=== PATIENT | female | born 1965 | race Hispanic/Latino ===

== ENCOUNTER 2018-03-08 14:47 | Inpatient (IN) | payer OTHER ==
[2018-03-08] MEDS ORDERED: ZOFRAN IV ONE (15:25)
[2018-03-08] MEDS ORDERED: NACL 0.9% 1000 ML 1,000 ML IV ONE (15:25)
[2018-03-08 15:51] LABS: Basophils % (Auto) 0.2 % (0.0-1.8); Eosinophils % (Auto) 0.1 % (0.0-4.3); Hematocrit 35.5 % (30.3-42.9); Hemoglobin 11.9 gm/dl (10.1-14.3); Lymphocytes % (Auto) 7.9 % (13.4-35.0); Mean Corpuscular HGB Conc 34 % (30-34); Mean Corpuscular Hemoglobin 29 pg (28-32); Mean Corpuscular Volume 87 fl (79-97); Monocytes # (Auto) 1.4 K/mm3 (0.0-0.8); Platelet Count 229 K/mm3 (140-440); Red Cell Distribution Width 14.1 % (13.2-15.2)
[2018-03-08] MEDS ORDERED: ZOSYN/NS 4.5GM/100ML 4.5 GM/100 ML VIAL IV SCH ×2 (16:00→18:40)
[2018-03-08 16:08] LABS: Alanine Aminotransferase 75 units/L (7-56); Albumin 3.7 g/dL (3.9-5); BUN/Creatinine Ratio 22; Blood Urea Nitrogen 11 mg/dL (7-17); Calcium 8.8 mg/dL (8.4-10.2); Hemolysis Index 43
[2018-03-08 16:17] LABS: Bacteria,Urine 1+ /HPF (Negative); Bilirubin,Urine NEG (Negative); Blood,Urine MOD (Negative); Color,Urine Amber (Yellow); Mucus,Urine 3+ /HPF
--- NOTE | 2018-03-08 16:47 | Emergency Department Report ---
ED Abdominal Pain HPI - General Chief Complaint: Abdominal Pain Stated Complaint: SENT ME HERE FOR POSSIBLE APPY Time Seen by Provider: 03/08/18 15:19 Source: patient Mode of arrival: Ambulatory Limitations: No Limitations - History of Present Illness Initial Comments: 52-year-old female no past medical or surgical history presents to the hospital by her doctor for suspicion of appendicitis. For the past 5 days patient has had intermittent fever, body aches, and generalized abdominal pain worse in the right lower quadrant. Decreased appetite reported with occasional vomiting. Patient denies dysuria, diarrhea, international travel, or known sick contacts. Patient did recently return from [place] 4 days ago. Her primary care doctor contacted general surgeon Dr. Mott who will be performing her surgery if imaging test positive for appendicitis. Severity scale (0 -10): 7 - Related Data Allergies Allergy/AdvReac Type Severity Reaction Status Date / Time No Known Allergies Allergy Verified 03/08/18 17:21 ED Review of Systems ROS: Stated complaint: SENT ME HERE FOR POSSIBLE APPY Other details as noted in HPI Comment: All other systems reviewed and negative ED Past Medical Hx - Past Medical History Previous Medical History?: No - Surgical History Past Surgical History?: No - Social History Smoking Status: Never Smoker Substance Use Type: None ED Physical Exam - General Limitations: No Limitations - Other Other exam information: General: No limitations, patient is alert in no acute distress Head exam: Atraumatic, normocephalic Eyes exam: Normal appearance ENT: Moist mucous membrane, normal oropharynx Neck exam: Normal inspection, full range of motion, no meningismus nontender Respiratory exam: Clear to auscultation bilateral, no wheezes, rales, crackles Cardiovascular: Normal rate and rhythm, normal heart sounds Abdomen: Soft, nondistended, right lower quadrant tenderness, with normal bowel sounds, no rebound, or guarding Extremity: Full range of motion normal inspection no deformity Back: Normal Inspection, full range of motion, no tenderness Neurologic: Alert, oriented x3, cranial nerves intact, no motor or sensory deficit Psychiatric: normal affect, normal mood Skin: Warm, dry, intact ED Course Vital Signs 03/08/18 03/08/18 14:57 15:33 Temperature 100.9 F H 100.6 F H Pulse Rate 70 84 Respiratory 16 14 Rate Blood Pressure 124/66 Blood Pressure 119/73 [Left] O2 Sat by Pulse 97 98 Oximetry - Reevaluation(s) Reevaluation #1: 03/08/18 16:47 Zofran, normal saline, and Zosyn initiated. Patient declined offer for pain medication. ED Medical Decision Making - Lab Data Result diagrams: 03/08/18 15:20 03/08/18 15:20 Lab Results 03/08/18 03/08/18 03/08/18 Range/Units 15:20 15:20 15:20 WBC 12.6 H (4.5-11.0) K/mm3 RBC 4.10 (3.65-5.03) M/mm3 Hgb 11.9 (10.1-14.3) gm/dl Hct 35.5 (30.3-42.9) % MCV 87 (79-97) fl MCH 29 (28-32) pg MCHC 34 (30-34) % RDW 14.1 (13.2-15.2) % Plt Count 229 (140-440) K/mm3 Lymph % (Auto) 7.9 L (13.4-35.0) % [place] % (Auto) 11.0 H (0.0-7.3) % Eos % (Auto) 0.1 (0.0-4.3) % Baso % (Auto) 0.2 (0.0-1.8) % Lymph # 1.0 L (1.2-5.4) K/mm3 [place] # 1.4 H (0.0-0.8) K/mm3 Eos # 0.0 (0.0-0.4) K/mm3 Baso # 0.0 (0.0-0.1) K/mm3 Seg Neutrophils % 80.8 H (40.0-70.0) % Seg Neutrophils # 10.2 H (1.8-7.7) K/mm3 Sodium 137 (137-145) mmol/L Potassium 4.3 (3.6-5.0) mmol/L Chloride 97.1 L (98-107) mmol/L Carbon Dioxide 25 (22-30) mmol/L Anion Gap 19 mmol/L BUN 11 (7-17) mg/dL Creatinine 0.5 L (0.7-1.2) mg/dL Estimated GFR > 60 ml/min BUN/Creatinine Ratio 22 % Glucose 104 H (65-100) mg/dL Calcium 8.8 (8.4-10.2) mg/dL Total Bilirubin 0.80 (0.1-1.2) mg/dL AST 40 (5-40) units/L ALT 75 H (7-56) units/L Alkaline Phosphatase 131 H (35-129) units/L Total Protein 7.5 (6.3-8.2) g/dL Albumin 3.7 L (3.9-5) g/dL Albumin/Globulin Ratio 1.0 % Urine Color (Yellow) Urine Turbidity (Clear) Urine pH (5.0-7.0) Ur Specific [place] (1.003-1.030) Urine Protein (Negative) mg/dL Urine Glucose (UA) (Negative) mg/dL Urine Ketones (Negative) mg/dL Urine Blood (Negative) Urine Nitrite (Negative) Urine Bilirubin (Negative) Urine Urobilinogen (<2.0) mg/dL Ur Leukocyte Esterase (Negative) Urine WBC (Auto) (0.0-6.0) /HPF Urine RBC (Auto) (0.0-6.0) /HPF U Epithel Cells (Auto) (0-13.0) /HPF Urine Bacteria (Auto) (Negative) /HPF Urine Mucus /HPF Blood Type A POSITIVE Antibody Screen Negative 03/08/18 Range/Units 15:57 WBC (4.5-11.0) K/mm3 RBC (3.65-5.03) M/mm3 Hgb (10.1-14.3) gm/dl Hct (30.3-42.9) % MCV (79-97) fl MCH (28-32) pg MCHC (30-34) % RDW (13.2-15.2) % Plt Count (140-440) K/mm3 Lymph % (Auto) (13.4-35.0) % [place] % (Auto) (0.0-7.3) % Eos % (Auto) (0.0-4.3) % Baso % (Auto) (0.0-1.8) % Lymph # (1.2-5.4) K/mm3 [place] # (0.0-0.8) K/mm3 Eos # (0.0-0.4) K/mm3 Baso # (0.0-0.1) K/mm3 Seg Neutrophils % (40.0-70.0) % Seg Neutrophils # (1.8-7.7) K/mm3 Sodium (137-145) mmol/L Potassium (3.6-5.0) mmol/L Chloride (98-107) mmol/L Carbon Dioxide (22-30) mmol/L Anion Gap mmol/L BUN (7-17) mg/dL Creatinine (0.7-1.2) mg/dL Estimated GFR ml/min BUN/Creatinine Ratio % Glucose (65-100) mg/dL Calcium (8.4-10.2) mg/dL Total Bilirubin (0.1-1.2) mg/dL AST (5-40) units/L ALT (7-56) units/L Alkaline Phosphatase (35-129) units/L Total Protein (6.3-8.2) g/dL Albumin (3.9-5) g/dL Albumin/Globulin Ratio % Urine Color [place] (Yellow) Urine Turbidity Clear (Clear) Urine pH 5.0 (5.0-7.0) Ur Specific [place] 1.025 (1.003-1.030) Urine Protein 100 mg/dl (Negative) mg/dL Urine Glucose (UA) Neg (Negative) mg/dL Urine Ketones Neg (Negative) mg/dL Urine Blood Mod (Negative) Urine Nitrite Neg (Negative) Urine Bilirubin Neg (Negative) Urine Urobilinogen 4.0 (<2.0) mg/dL Ur Leukocyte Esterase Neg (Negative) Urine WBC (Auto) 5.0 (0.0-6.0) /HPF Urine RBC (Auto) 11.0 (0.0-6.0) /HPF U Epithel Cells (Auto) 2.0 (0-13.0) /HPF Urine Bacteria (Auto) 1+ (Negative) /HPF Urine Mucus 3+ /HPF Blood Type Antibody Screen - Radiology Data Radiology results: report reviewed PROCEDURE: CT abdomen and pelvis with contrast. TECHNIQUE: Computerized axial tomography of the abdomen and pelvis was performed after the IV injection of iodinated nonionic contrast. HISTORY: Right lower quadrant abdominal pain, nausea and vomiting. COMPARISON: No prior studies are available for comparison. FINDINGS: The lung bases are clear. There are no pleural effusions. The heart size is normal. The liver, pancreas and spleen appear normal. The gallbladder is present. The adrenal glands are not enlarged. Both kidneys appear normal in size and configuration. There is a tiny cyst in the right kidney. The abdominal aorta has a normal caliber. There is no retroperitoneal adenopathy. There is a complex fluid collection in the right side of the pelvis. This is located posterior to the cecum. There is a bubble of gas within this fluid. I cannot identify the appendix with certainty. I am suspicious that this represents ruptured appendicitis with abscess formation however. Pelvic inflammatory disease with a right ovarian abscess is also possible, but considered less likely. Clinical correlation and referral to a general surgeon is recommended. The fluid collection measures approximately 4.1 centimeters x 3.3 centimeters in cross-section. The bladder and uterus are unremarkable. The regional skeleton appears intact. IMPRESSION: Right-sided pelvic abscess which probably represents ruptured appendicitis. Please see above comments. Tiny right renal cyst. - Medical Decision Making acute appy with abscess Patient treated with Zosyn, Zofran, and normal saline General surgeon Dr. Mott at the bedside. Will admit pt - Differential Diagnosis appendicitis, UTI, diverticulitis, gastroenteritis Critical Care Time: No Critical care attestation.: If time is entered above; I have spent that time in minutes in the direct care of this critically ill patient, excluding procedure time. ED Disposition Clinical Impression: Acute appendicitis with peritoneal abscess Disposition: OP ADMIT IP TO THIS HOSP Is pt being admited?: Yes Condition: Stable Time of Disposition: 18:05 (Dr mott to admit )
[2018-03-08] MEDS ORDERED: SUBLIMAZE ONE (17:48)
[2018-03-08] MEDS ORDERED: ZOFRAN ONE (17:48)
[2018-03-08] MEDS ORDERED: DIPRIVAN 10 MG/ML IV ONE (17:48)
[2018-03-08] MEDS ORDERED: ZEMURON IV ONE (17:48)
--- NOTE | 2018-03-08 17:51 | Anesthesia Consultation ---
Anesthesia Consult and Med Hx Date of service: 03/08/18 - Airway Anesthetic Teeth Evaluation: Good (#8-9 are implants), Crowns ROM Head & Neck: Adequate Mental/Hyoid Distance: Adequate Mallampati Class: Class II Intubation Access Assessment: Probably Good - Pre-Operative Health Status ASA Pre-Surgery Classification: ASA1, Emergency - Additional Comments Anesthesia Medical History Comments: acute appendicitis
--- NOTE | 2018-03-08 17:51 | Anesthesia Day of Surgery ---
Anesthesia Day of Surgery - Day of Surgery Patient Examined: Yes Patient H&P Reviewed: Yes Patient is NPO: Yes
--- NOTE | 2018-03-08 17:54 | Cat Scan Report ---
FINAL REPORT PROCEDURE: CT abdomen and pelvis with contrast. TECHNIQUE: Computerized axial tomography of the abdomen and pelvis was performed after the IV injection of iodinated nonionic contrast. HISTORY: Right lower quadrant abdominal pain, nausea and vomiting. COMPARISON: No prior studies are available for comparison. FINDINGS: The lung bases are clear. There are no pleural effusions. The heart size is normal. The liver, pancreas and spleen appear normal. The gallbladder is present. The adrenal glands are not enlarged. Both kidneys appear normal in size and configuration. There is a tiny cyst in the right kidney. The abdominal aorta has a normal caliber. There is no retroperitoneal adenopathy. There is a complex fluid collection in the right side of the pelvis. This is located posterior to the cecum. There is a bubble of gas within this fluid. I cannot identify the appendix with certainty. I am suspicious that this represents ruptured appendicitis with abscess formation however. Pelvic inflammatory disease with a right ovarian abscess is also possible, but considered less likely. Clinical correlation and referral to a general surgeon is recommended. The fluid collection measures approximately 4.1 centimeters x 3.3 centimeters in cross-section. The bladder and uterus are unremarkable. The regional skeleton appears intact. IMPRESSION: Right-sided pelvic abscess which probably represents ruptured appendicitis. Please see above comments. Tiny right renal cyst.
[2018-03-08] MEDS ORDERED: XYLOCAINE MPF 2% ONE (18:00)
[2018-03-08] MEDS ORDERED: WATER IV SCH (18:45)
[2018-03-08] MEDS ORDERED: STERILE IV SCH (18:45)
[2018-03-08] MEDS ORDERED: ZOSYN NICU IV SCH (18:45)
--- NOTE | 2018-03-08 18:52 | History and Physical Report ---
History of Present Illness Date of examination: 03/08/18 Date of admission: 03/08/18 18:22 Chief complaint: RLQ pain X 5 days History of present illness: 52 yo female with a 5 day h/o diffuse then BLQ abd pain associated with nausea, vomiting and "very dark" bowel movements. She has had a LGF but denies dysuria , hematuria, urinary frequency, hematemesis, melena, hematochezia or contacts with similar symptoms. No prior abd surgery except for a D&C. She is not aware of any precipitating, exacerbating or relieving factors. Past History Past Surgical History: Other (D&C, sinus surgery) Social history: no significant social history, (Denies Etoh and tobacco use.) Family history: no significant family history Medications and Allergies Allergies Allergy/AdvReac Type Severity Reaction Status Date / Time No Known Allergies Allergy Verified 03/08/18 17:21 Home Medications Medication Instructions Recorded Confirmed Last Taken Type No Known Home Medications [No 03/08/18 03/08/18 Unknown History Reported Home Medications] Active Meds: Active Medications Heparin Sodium (Porcine) (Heparin) 5,000 unit SUB-Q Q8HR [place]ON Piperacillin Sod/Tazobactam Sod (Zosyn/Ns 4.5gm/100ml) 4.5 gm in 100 mls @ 200 mls/hr IV ONCE [facility]ON Metronidazole (Flagyl 500 Mg/100 Ml) 500 mg in 100 mls @ 100 mls/hr IV Q8HR [facility]ON Piperacillin Sod/Tazobactam Sod (Zosyn/Ns 4.5gm/100ml) 4.5 gm in 100 mls @ 200 mls/hr IV Q8H [place]ON Morphine Sulfate (Morphine) 2 mg IV Q3H PRN PRN Reason: Pain, Moderate (4-6) Review of Systems All systems: negative (none) Exam Vital Signs Temp Pulse Resp BP Pulse Ox 100.9 F H 70 16 124/66 97 03/08/18 14:57 03/08/18 14:57 03/08/18 14:57 03/08/18 14:57 03/08/18 14:57 - General physical appearance Positive: well developed, well nourished, no distress - Eyes Positive: PERRL, normal occular movement - ENT Positive: normal pinna, normal nares, normal mucosa, no hearing loss, no congestion - Neck Positive: no masses, no bruits, trachea midline, no venous distension - Respiratory Positive: normal expansion, normal respiratory effort, clear to auscultation - Cardiovascular Rhythm: regular Heart Sounds: Present: S1 & S2. Absent: rub, click - Extremities Extremities: no ischemia, pulses symmetrical, No edema - Breasts Breasts: deferred - Abdomen Abdomen: Present: other (Soft with pinpoint RLQ tenderness with guarding. Bowel sounds normoactive. No rebound. No cough tenderness) - Genitourinary Female Genitourinary: deferred - Integumentary no rash, no growths, no abnormal pigmentation - Neurologic Neurologic: alert and oriented to time, place and person, motor strength and sensation are grossly intact - Musculoskeletal normal gait, normal posture - Psychiatric Psychiatric: appropriate mood/affect, intact judgment & insight Results - Labs 03/08/18 15:20 03/08/18 15:20 Abnormal lab results 03/08/18 03/08/18 Range/Units 15:20 15:20 WBC 12.6 H (4.5-11.0) K/mm3 Lymph % (Auto) 7.9 L (13.4-35.0) % [place] % (Auto) 11.0 H (0.0-7.3) % Lymph # 1.0 L (1.2-5.4) K/mm3 [place] # 1.4 H (0.0-0.8) K/mm3 Seg Neutrophils % 80.8 H (40.0-70.0) % Seg Neutrophils # 10.2 H (1.8-7.7) K/mm3 Chloride 97.1 L (98-107) mmol/L Creatinine 0.5 L (0.7-1.2) mg/dL Glucose 104 H (65-100) mg/dL ALT 75 H (7-56) units/L Alkaline Phosphatase 131 H (35-129) units/L Albumin 3.7 L (3.9-5) g/dL Diabetes panel 03/08/18 Range/Units 15:20 Sodium 137 (137-145) mmol/L Potassium 4.3 (3.6-5.0) mmol/L Chloride 97.1 L (98-107) mmol/L Carbon Dioxide 25 (22-30) mmol/L BUN 11 (7-17) mg/dL Creatinine 0.5 L (0.7-1.2) mg/dL Glucose 104 H (65-100) mg/dL Calcium 8.8 (8.4-10.2) mg/dL AST 40 (5-40) units/L ALT 75 H (7-56) units/L Alkaline Phosphatase 131 H (35-129) units/L Total Protein 7.5 (6.3-8.2) g/dL Albumin 3.7 L (3.9-5) g/dL Calcium panel 03/08/18 Range/Units 15:20 Calcium 8.8 (8.4-10.2) mg/dL Albumin 3.7 L (3.9-5) g/dL Pituitary panel 03/08/18 Range/Units 15:20 Sodium 137 (137-145) mmol/L Potassium 4.3 (3.6-5.0) mmol/L Chloride 97.1 L (98-107) mmol/L Carbon Dioxide 25 (22-30) mmol/L BUN 11 (7-17) mg/dL Creatinine 0.5 L (0.7-1.2) mg/dL Glucose 104 H (65-100) mg/dL Calcium 8.8 (8.4-10.2) mg/dL Adrenal panel 03/08/18 Range/Units 15:20 Sodium 137 (137-145) mmol/L Potassium 4.3 (3.6-5.0) mmol/L Chloride 97.1 L (98-107) mmol/L Carbon Dioxide 25 (22-30) mmol/L BUN 11 (7-17) mg/dL Creatinine 0.5 L (0.7-1.2) mg/dL Glucose 104 H (65-100) mg/dL Calcium 8.8 (8.4-10.2) mg/dL Total Bilirubin 0.80 (0.1-1.2) mg/dL AST 40 (5-40) units/L ALT 75 H (7-56) units/L Alkaline Phosphatase 131 H (35-129) units/L Total Protein 7.5 (6.3-8.2) g/dL Albumin 3.7 L (3.9-5) g/dL - Imaging CT scan - abdomen: report reviewed CT scan - pelvis: report reviewed Assessment and Plan - Patient Problems (1) Acute appendicitis with peritoneal abscess Current Visit: Yes Status: Acute Plan to address problem: 1) IV Zosyn and Flagyl 2) NPO 3) IR consult in the am for percutaneous drainage 4) Prophylactic IPC and SQ Heparin
[2018-03-08] MEDS: TYLENOL PO PRN (20:39)
[2018-03-08] MEDS: NACL 0.9% 1000 ML 1,000 ML IV SCH (20:39)
[2018-03-08] MEDS: FLAGYL 500 MG/100 ML 500 MG/100 ML BAG IV SCH (23:16)
[2018-03-08] MEDS: ZOSYN/NS 4.5GM/100ML 4.5 GM/100 ML VIAL IV SCH (23:16)
[2018-03-08] MEDS: HEPARIN SUB-Q SCH (23:19)
[2018-03-09 05:45] LABS: Basophils # (Auto) 0.1 K/mm3 (0.0-0.1); Basophils % (Auto) 0.5 % (0.0-1.8); Hematocrit 30.5 % (30.3-42.9); Hemoglobin 10.3 gm/dl (10.1-14.3); Lymphocytes # (Auto) 1.2 K/mm3 (1.2-5.4); Lymphocytes % (Auto) 9.4 % (13.4-35.0); Mean Corpuscular HGB Conc 34 % (30-34); Mean Corpuscular Hemoglobin 29 pg (28-32); Mean Corpuscular Volume 87 fl (79-97); Monocytes # (Auto) 1.2 K/mm3 (0.0-0.8); Monocytes % (Auto) 8.8 % (0.0-7.3); Red Cell Distribution Width 14.2 % (13.2-15.2)
[2018-03-09 05:51] LABS: Platelet Count 190 K/mm3 (140-440)
[2018-03-09 06:03] LABS: BUN/Creatinine Ratio 22; Blood Urea Nitrogen 11 mg/dL (7-17); Hemolysis Index 145
[2018-03-09] MEDS: TYLENOL PO PRN ×2 (07:47→20:04)
[2018-03-09] MEDS: FLAGYL 500 MG/100 ML 500 MG/100 ML BAG IV SCH ×3 (07:50→22:00)
[2018-03-09] MEDS: HEPARIN SUB-Q SCH ×3 (07:52→22:03)
[2018-03-09] MEDS: NACL 0.9% 1000 ML 1,000 ML IV SCH ×2 (07:56→09:42)
[2018-03-09] MEDS: ZOSYN/NS 4.5GM/100ML 4.5 GM/100 ML VIAL IV SCH ×2 (08:30→16:46)
[2018-03-09] MEDS ORDERED: VERSED IV ONE ×2 (09:11→09:16)
[2018-03-09] MEDS ORDERED: SUBLIMAZE IV ONE (09:11)
[2018-03-09] MEDS ORDERED: SUBLIMAZE ONE (09:16)
[2018-03-09] MEDS ORDERED: NACL 0.9% 500 ML 0 ML ONE (09:16)
[2018-03-09] MEDS ORDERED: NACL 0.9% 1000 ML 1,000 ML ONE ×3 (09:34→11:20)
[2018-03-09] MEDS ORDERED: NACL 0.9% 1000 ML 1,000 ML IV ONE ×2 (10:00→10:34)
--- NOTE | 2018-03-09 11:22 | Post Operative Note ---
Date of procedure: 03/09/18 Pre-op diagnosis: Appendiceal multiloculated abscess Post-op diagnosis: same Procedure: CT guided placement of an 8 Fr drain in the RLQ appendiceal abscess - 25 mL pus and bloody discharge removed. Attached to drainage bag. Sent for Cx. Anesthesia: local Surgeon: KAMERON CHEN Estimated blood loss: minimal Specimen disposition: to lab Condition: stable Disposition: floor
--- NOTE | 2018-03-09 12:14 | Progress Note ---
Assessment and Plan - Patient Problems (1) Acute appendicitis with peritoneal abscess Current Visit: Yes Status: Acute Plan to address problem: 1) Continue IV Zosyn and Flagyl 2) CLD 3) CBC in the am Subjective Date of service: 03/09/18 Patient Reports: Positive: no new complaints (S/p IR drainage.) Objective Vital Signs - 12hr 03/09/18 03/09/18 03/09/18 00:40 00:41 04:38 Temperature 99.7 F H 102.0 F H Pulse Rate 75 75 80 Pulse Rate [ Intra-Procedure ] Pulse Rate [ Post-Procedure] Pulse Rate [Pre -Procedure] Respiratory 20 20 Rate Respiratory Rate [Intra- Procedure] Respiratory Rate [Post- Procedure] Respiratory Rate [Pre- Procedure] Blood Pressure 98/44 98/44 98/52 Blood Pressure [Intra- Procedure] Blood Pressure [Left] Blood Pressure [Post-Procedure ] Blood Pressure [Pre-Procedure] O2 Sat by Pulse 99 98 93 Oximetry O2 Sat by Pulse Oximetry [ Intra-Procedure ] O2 Sat by Pulse Oximetry [Post -Procedure] O2 Sat by Pulse Oximetry [Pre- Procedure] 03/09/18 03/09/18 03/09/18 08:06 08:07 09:40 Temperature 99.9 F H Pulse Rate 78 79 Pulse Rate [ Intra-Procedure ] Pulse Rate [ Post-Procedure] Pulse Rate [Pre 71 -Procedure] Respiratory 18 Rate Respiratory Rate [Intra- Procedure] Respiratory Rate [Post- Procedure] Respiratory 22 Rate [Pre- Procedure] Blood Pressure 108/53 Blood Pressure [Intra- Procedure] Blood Pressure [Left] Blood Pressure [Post-Procedure ] Blood Pressure 100/52 [Pre-Procedure] O2 Sat by Pulse 91 92 Oximetry O2 Sat by Pulse Oximetry [ Intra-Procedure ] O2 Sat by Pulse Oximetry [Post -Procedure] O2 Sat by Pulse 95 Oximetry [Pre- Procedure] 03/09/18 03/09/18 03/09/18 10:15 10:41 10:43 Temperature Pulse Rate 69 Pulse Rate [ 73 Intra-Procedure ] Pulse Rate [ Post-Procedure] Pulse Rate [Pre 74 -Procedure] Respiratory 23 Rate Respiratory 18 Rate [Intra- Procedure] Respiratory Rate [Post- Procedure] Respiratory 20 Rate [Pre- Procedure] Blood Pressure Blood Pressure 107/57 [Intra- Procedure] Blood Pressure 98/59 [Left] Blood Pressure [Post-Procedure ] Blood Pressure 100/58 [Pre-Procedure] O2 Sat by Pulse 95 Oximetry O2 Sat by Pulse 99 Oximetry [ Intra-Procedure ] O2 Sat by Pulse Oximetry [Post -Procedure] O2 Sat by Pulse 98 Oximetry [Pre- Procedure] 03/09/18 03/09/18 03/09/18 10:48 10:53 10:56 Temperature Pulse Rate Pulse Rate [ 72 71 Intra-Procedure ] Pulse Rate [ Post-Procedure] Pulse Rate [Pre -Procedure] Respiratory 18 Rate Respiratory 26 H 27 H Rate [Intra- Procedure] Respiratory Rate [Post- Procedure] Respiratory Rate [Pre- Procedure] Blood Pressure Blood Pressure 100/58 104/57 [Intra- Procedure] Blood Pressure [Left] Blood Pressure [Post-Procedure ] Blood Pressure [Pre-Procedure] O2 Sat by Pulse Oximetry O2 Sat by Pulse 98 99 Oximetry [ Intra-Procedure ] O2 Sat by Pulse Oximetry [Post -Procedure] O2 Sat by Pulse Oximetry [Pre- Procedure] 03/09/18 03/09/18 03/09/18 10:58 11:03 11:07 Temperature Pulse Rate Pulse Rate [ 69 70 70 Intra-Procedure ] Pulse Rate [ Post-Procedure] Pulse Rate [Pre -Procedure] Respiratory Rate Respiratory 23 22 27 H Rate [Intra- Procedure] Respiratory Rate [Post- Procedure] Respiratory Rate [Pre- Procedure] Blood Pressure Blood Pressure 105/57 105/60 104/70 [Intra- Procedure] Blood Pressure [Left] Blood Pressure [Post-Procedure ] Blood Pressure [Pre-Procedure] O2 Sat by Pulse Oximetry O2 Sat by Pulse 100 99 100 Oximetry [ Intra-Procedure ] O2 Sat by Pulse Oximetry [Post -Procedure] O2 Sat by Pulse Oximetry [Pre- Procedure] 03/09/18 03/09/18 03/09/18 11:12 11:19 11:34 Temperature Pulse Rate Pulse Rate [ 70 Intra-Procedure ] Pulse Rate [ 70 69 Post-Procedure] Pulse Rate [Pre -Procedure] Respiratory Rate Respiratory 14 Rate [Intra- Procedure] Respiratory 22 23 Rate [Post- Procedure] Respiratory Rate [Pre- Procedure] Blood Pressure Blood Pressure 101/58 [Intra- Procedure] Blood Pressure [Left] Blood Pressure 104/59 109/57 [Post-Procedure ] Blood Pressure [Pre-Procedure] O2 Sat by Pulse Oximetry O2 Sat by Pulse 100 Oximetry [ Intra-Procedure ] O2 Sat by Pulse 99 95 Oximetry [Post -Procedure] O2 Sat by Pulse Oximetry [Pre- Procedure] 03/09/18 11:51 Temperature Pulse Rate Pulse Rate [ Intra-Procedure ] Pulse Rate [ 69 Post-Procedure] Pulse Rate [Pre -Procedure] Respiratory Rate Respiratory Rate [Intra- Procedure] Respiratory 22 Rate [Post- Procedure] Respiratory Rate [Pre- Procedure] Blood Pressure Blood Pressure [Intra- Procedure] Blood Pressure [Left] Blood Pressure 102/57 [Post-Procedure ] Blood Pressure [Pre-Procedure] O2 Sat by Pulse Oximetry O2 Sat by Pulse Oximetry [ Intra-Procedure ] O2 Sat by Pulse 96 Oximetry [Post -Procedure] O2 Sat by Pulse Oximetry [Pre- Procedure] - Abdomen other (Soft with unchanged RLQ tenderness) - Labs 03/09/18 04:57 03/09/18 04:57 Diabetes panel 03/08/18 03/09/18 Range/Units 15:20 04:57 Sodium 137 137 (137-145) mmol/L Potassium 4.3 4.1 (3.6-5.0) mmol/L Chloride 97.1 L 96.9 L (98-107) mmol/L Carbon Dioxide 25 21 L (22-30) mmol/L BUN 11 11 (7-17) mg/dL Creatinine 0.5 L 0.5 L (0.7-1.2) mg/dL Glucose 104 H 93 (65-100) mg/dL Calcium 8.8 8.0 L (8.4-10.2) mg/dL AST 40 (5-40) units/L ALT 75 H (7-56) units/L Alkaline Phosphatase 131 H (35-129) units/L Total Protein 7.5 (6.3-8.2) g/dL Albumin 3.7 L (3.9-5) g/dL Calcium panel 03/08/18 03/09/18 Range/Units 15:20 04:57 Calcium 8.8 8.0 L (8.4-10.2) mg/dL Albumin 3.7 L (3.9-5) g/dL Pituitary panel 03/08/18 03/09/18 Range/Units 15:20 04:57 Sodium 137 137 (137-145) mmol/L Potassium 4.3 4.1 (3.6-5.0) mmol/L Chloride 97.1 L 96.9 L (98-107) mmol/L Carbon Dioxide 25 21 L (22-30) mmol/L BUN 11 11 (7-17) mg/dL Creatinine 0.5 L 0.5 L (0.7-1.2) mg/dL Glucose 104 H 93 (65-100) mg/dL Calcium 8.8 8.0 L (8.4-10.2) mg/dL Adrenal panel 03/08/18 03/09/18 Range/Units 15:20 04:57 Sodium 137 137 (137-145) mmol/L Potassium 4.3 4.1 (3.6-5.0) mmol/L Chloride 97.1 L 96.9 L (98-107) mmol/L Carbon Dioxide 25 21 L (22-30) mmol/L BUN 11 11 (7-17) mg/dL Creatinine 0.5 L 0.5 L (0.7-1.2) mg/dL Glucose 104 H 93 (65-100) mg/dL Calcium 8.8 8.0 L (8.4-10.2) mg/dL Total Bilirubin 0.80 (0.1-1.2) mg/dL AST 40 (5-40) units/L ALT 75 H (7-56) units/L Alkaline Phosphatase 131 H (35-129) units/L Total Protein 7.5 (6.3-8.2) g/dL Albumin 3.7 L (3.9-5) g/dL
[2018-03-09] MEDS: MORPHINE IV PRN ×3 (13:42→19:55)
[2018-03-10] MEDS: ZOSYN/NS 4.5GM/100ML 4.5 GM/100 ML VIAL IV SCH ×4 (00:10→23:47)
[2018-03-10] MEDS: MORPHINE IV PRN ×4 (00:12→22:09)
[2018-03-10] MEDS: NACL 0.9% 1000 ML 1,000 ML IV SCH ×2 (00:14→23:47)
[2018-03-10 04:57] LABS: Basophils % (Auto) 0.4 % (0.0-1.8); Hematocrit 27.1 % (30.3-42.9); Hemoglobin 9.3 gm/dl (10.1-14.3); Lymphocytes % (Auto) 10.1 % (13.4-35.0); Mean Corpuscular HGB Conc 34 % (30-34); Mean Corpuscular Hemoglobin 30 pg (28-32); Mean Corpuscular Volume 87 fl (79-97); Monocytes # (Auto) 0.5 K/mm3 (0.0-0.8); Monocytes % (Auto) 5.1 % (0.0-7.3); Platelet Count 188 K/mm3 (140-440); Red Blood Count 3.11 M/mm3 (3.65-5.03); Red Cell Distribution Width 14.8 % (13.2-15.2)
[2018-03-10] MEDS: FLAGYL 500 MG/100 ML 500 MG/100 ML BAG IV SCH (06:33)
[2018-03-10] MEDS: HEPARIN SUB-Q SCH ×3 (06:33→22:03)
[2018-03-10] MEDS: TYLENOL PO PRN ×2 (08:09→17:12)
--- NOTE | 2018-03-10 12:54 | Consultation ---
History of Present Illness - Reason for Consult Consult date: 03/10/18 pelvic abscess Requesting physician: SARA HARTMANN - History of Present Illness 52 y/o female without medical history admitted on 03/08/18 due to due 5 da- history of diffuse lower abdomina pain associated with nausea, vomiting and "very dark" bowel movements. Also noted intermittent fever, body aches. Abdominal pain became worse in the right lower quadrant. Decreased appetite reported with occasional vomiting. Patient denies dysuria, diarrhea or known sick contacts. Patient did recently return from [place] 4 days ago. In the ED, initial temp 100.9, HR 70, R 16, BP 124/66, O2 sat 97%. WBC 12.9. Hg 11.9. Plat 229. Creat 0.4. ALT 75. CRP 24. UA neg. CT abd showed 4.1x3.3 cm right pelvic fluid collection. Patient underwent CT guided placement of an 8 Fr drain in the RLQ appendiceal abscess - 25 mL pus and bloody discharge removed. Micro: Blood cx 03/10 pending Drainage cx 03/09 Gram +GPC and GNB Past History Past Surgical History: No surgical history, Other (D&C, sinus surgery) Social history: no significant social history, (Denies Etoh and tobacco use.) Family history: no significant family history Medications and Allergies Allergies Allergy/AdvReac Type Severity Reaction Status Date / Time No Known Allergies Allergy Verified 03/08/18 17:21 Home Medications Medication Instructions Recorded Confirmed Last Taken Type Ibuprofen [Motrin 200 MG tab] 400 mg PO QAM 03/08/18 03/08/18 03/08/18 History Active Meds: Active Medications Acetaminophen (Tylenol) 650 mg PO Q4H PRN PRN Reason: Fever >101 Last Admin: 03/10/18 08:09 Dose: 650 mg Heparin Sodium (Porcine) (Heparin) 5,000 unit SUB-Q Q8HR MASON Last Admin: 03/10/18 06:33 Dose: 5,000 unit Metronidazole (Flagyl 500 Mg/100 Ml) 500 mg in 100 mls @ 100 mls/hr IV Q8HR MASON Last Admin: 03/10/18 06:33 Dose: 100 mls/hr Piperacillin Sod/Tazobactam Sod (Zosyn/Ns 4.5gm/100ml) 4.5 gm in 100 mls @ 200 mls/hr IV Q8H MASON Last Admin: 03/10/18 08:09 Dose: 200 mls/hr Sodium Chloride (Nacl 0.9% 1000 Ml) 1,000 mls @ 100 mls/hr IV DIRECT MASON Last Admin: 03/10/18 00:14 Dose: 100 mls/hr Morphine Sulfate (Morphine) 2 mg IV Q3H PRN PRN Reason: Pain, Moderate (4-6) Last Admin: 03/10/18 00:12 Dose: 2 mg Review of Systems All systems: negative (as per HPI rest neg) Physical Examination - Physical Exam Narrative exam: Alert in NAD, pleasant NC, AT, BENITO, clear OP Neck No LN Lungs CTA mathew CV RRR Abd soft mild TTT in lower abd, +drain with bloody purulent Ext no edema Skin No rash Neuro alert and oriented non focal - Constitutional Vitals: Vital Signs Temp Pulse Resp BP Pulse Ox 98.3 F 68 19 102/55 96 03/10/18 11:18 03/10/18 11:18 03/10/18 11:18 03/10/18 11:18 03/10/18 11:48 Temperature -Last 24 Hours Temperature 98.3 F Temperature 100.9 F Temperature 100.9 F Temperature 100.0 F Temperature 99.6 F Temperature 99.5 F Results - Labs CBC & Chem 7: 03/10/18 04:15 03/09/18 04:57 Labs: Abnormal lab results 03/10/18 03/10/18 Range/Units 04:15 09:25 RBC 3.11 L (3.65-5.03) M/mm3 Hgb 9.3 L (10.1-14.3) gm/dl Hct 27.1 L (30.3-42.9) % Lymph % (Auto) 10.1 L (13.4-35.0) % Lymph # 1.0 L (1.2-5.4) K/mm3 Seg Neutrophils % 84.4 H (40.0-70.0) % Seg Neutrophils # 8.7 H (1.8-7.7) K/mm3 C-Reactive Protein 24.40 H (0.00-1.30) mg/dL Assessment and Plan Assessment: 1) Sepsis: present on admission with fever, leukocytosis, tachycardia; etio: perforated appendicitis with pelvic abscess -CRP 24 -UA neg 2) Perforated appendicitis with pelvic abscess -CT abd showed 4.1x3.3 cm right pelvic fluid collection. -S/P CT guided placement of an 8 Fr drain in the RLQ appendiceal abscess - 25 mL pus and bloody discharge removed. Drainage cx 03/09 Gram +GPC and GNB 3) Elevated LFTs-mild ? sepsis Plan: -continue zosyn -stop flagyl - no need for double coverage -f/u Drainage cultures -monitor fever and output -if clinically better by Tuesday will consider PO abx to go home - levaquin and flagyl Discussed with Dr Jj Rodríguez MD
--- NOTE | 2018-03-10 13:39 | Progress Note ---
Assessment and Plan - Patient Problems (1) Acute appendicitis with peritoneal abscess Current Visit: Yes Status: Acute Plan to address problem: 1) Advance to soft diet 2) Appreciate ID input 3) CBC and BMP in the am 4) Dr. Roa will see pt 03/11 and 03/12/18. Subjective Date of service: 03/10/18 Patient Reports: Positive: no new complaints, feels better, tolerating liquids well Objective Vital Signs - 12hr 03/10/18 03/10/18 03/10/18 05:30 05:31 07:08 Temperature 100.9 F H 100.9 F H Pulse Rate 77 77 76 Respiratory 20 20 Rate Blood Pressure 101/52 100/51 O2 Sat by Pulse 90 90 91 Oximetry 03/10/18 03/10/18 11:18 11:48 Temperature 98.3 F Pulse Rate 68 Respiratory 19 Rate Blood Pressure 102/55 O2 Sat by Pulse 95 96 Oximetry - Abdomen soft, bowel sounds normal (Mild tenderness in the RLQ) - Labs 03/10/18 04:15 03/09/18 04:57
[2018-03-11] MEDS: HEPARIN SUB-Q SCH ×3 (05:48→21:03)
[2018-03-11 07:43] LABS: BUN/Creatinine Ratio 16; Blood Urea Nitrogen 8 mg/dL (7-17); Calcium 7.7 mg/dL (8.4-10.2); Hemolysis Index 0
[2018-03-11 07:47] LABS: Hematocrit 26.6 % (30.3-42.9); Hemoglobin 9.1 gm/dl (10.1-14.3); Mean Corpuscular HGB Conc 34 % (30-34); Mean Corpuscular Hemoglobin 30 pg (28-32); Mean Corpuscular Volume 87 fl (79-97); Platelet Count 213 K/mm3 (140-440); Red Blood Count 3.04 M/mm3 (3.65-5.03); Red Cell Distribution Width 14.3 % (13.2-15.2)
[2018-03-11] MEDS: ZOSYN/NS 4.5GM/100ML 4.5 GM/100 ML VIAL IV SCH ×3 (09:39→23:32)
[2018-03-11] MEDS: NACL 0.9% 1000 ML 1,000 ML IV SCH ×2 (10:00→23:32)
[2018-03-11 11:46] LABS: Anisocytosis 1+; Basophils % (Manual) 0 % (0.0-1.8); Eosinophils % (Manual) 0 % (0.0-4.3); Platelet Estimate Consistent w Auto; Total Cells Counted 100
--- NOTE | 2018-03-11 14:45 | Progress Note ---
Assessment and Plan - Patient Problems (1) Acute appendicitis with peritoneal abscess Current Visit: Yes Status: Acute Plan to address problem: Pt looks good. Fever curve improved. Continue current care. Anticipate d/c home on Tuesday after IV Abx plan completed. Teach drain care Ambulate Discussed +/- of interval appendectomy. Deferred to Dr. Gardner for final decision. Time=15min Subjective Date of service: 03/11/18 Patient Reports: Positive: no new complaints, feels better, pain is less, tolerating a regular diet. Negative: nausea, vomiting Objective Vital Signs - 12hr 03/11/18 03/11/18 03/11/18 06:15 06:58 11:18 Temperature 99.6 F 99.0 F 99.0 F Pulse Rate 68 72 71 Respiratory 18 20 18 Rate Blood Pressure 107/57 113/48 108/58 O2 Sat by Pulse 93 94 93 Oximetry - General physical appearance no distress, no pain, other (looks well) - Respiratory normal expansion, normal respiratory effort - Abdomen soft, tender (mild in RLQ only), bowel sounds hypoactive, distended (milod), not guarding, not rigid, other (drain in place. Small amount of thick reddish material coming out. ) - Psychiatric oriented to time, oriented to person, oriented to place, speech is normal, memory intact - Labs 03/11/18 05:04 03/11/18 05:04 Diabetes panel 03/11/18 Range/Units 05:04 Sodium 136 L (137-145) mmol/L Potassium 3.3 L (3.6-5.0) mmol/L Chloride 100.4 (98-107) mmol/L Carbon Dioxide 24 (22-30) mmol/L BUN 8 (7-17) mg/dL Creatinine 0.5 L (0.7-1.2) mg/dL Glucose 101 H (65-100) mg/dL Calcium 7.7 L (8.4-10.2) mg/dL Calcium panel 03/11/18 Range/Units 05:04 Calcium 7.7 L (8.4-10.2) mg/dL Pituitary panel 03/11/18 Range/Units 05:04 Sodium 136 L (137-145) mmol/L Potassium 3.3 L (3.6-5.0) mmol/L Chloride 100.4 (98-107) mmol/L Carbon Dioxide 24 (22-30) mmol/L BUN 8 (7-17) mg/dL Creatinine 0.5 L (0.7-1.2) mg/dL Glucose 101 H (65-100) mg/dL Calcium 7.7 L (8.4-10.2) mg/dL Adrenal panel 03/11/18 Range/Units 05:04 Sodium 136 L (137-145) mmol/L Potassium 3.3 L (3.6-5.0) mmol/L Chloride 100.4 (98-107) mmol/L Carbon Dioxide 24 (22-30) mmol/L BUN 8 (7-17) mg/dL Creatinine 0.5 L (0.7-1.2) mg/dL Glucose 101 H (65-100) mg/dL Calcium 7.7 L (8.4-10.2) mg/dL
[2018-03-11] MEDS: TYLENOL PO PRN (21:02)
[2018-03-12] MEDS: HEPARIN SUB-Q SCH ×3 (07:18→22:00)
[2018-03-12] MEDS: ZOSYN/NS 4.5GM/100ML 4.5 GM/100 ML VIAL IV SCH ×2 (10:02→16:54)
[2018-03-12] MEDS: NACL 0.9% 1000 ML 1,000 ML IV SCH ×2 (10:03→23:15)
[2018-03-12] MEDS: TYLENOL PO PRN ×2 (10:16→20:11)
--- NOTE | 2018-03-12 15:36 | Progress Note ---
Assessment and Plan - Patient Problems (1) Acute appendicitis with peritoneal abscess Current Visit: Yes Status: Acute Plan to address problem: Pt looks good. Cultures grew out E.avium which is sensitive to Zosyn. Fever curve improved. Continue current care. Anticipate d/c home on Tuesday after IV Abx plan completed. Teach drain care Ambulate Dr. Gardner to return tomorrow. Time=10min Subjective Date of service: 03/12/18 Patient Reports: Positive: no new complaints, feels better, tolerating a regular diet, afebrile. Negative: nausea, vomiting Objective Vital Signs - 12hr 03/12/18 03/12/18 03/12/18 04:52 07:59 08:00 Temperature 99.2 F 98.4 F Pulse Rate 66 68 69 Respiratory 16 18 Rate Blood Pressure 108/60 Blood Pressure 110/56 [Left] O2 Sat by Pulse 94 94 Oximetry 03/12/18 03/12/18 12:00 12:06 Temperature 98.4 F Pulse Rate 61 63 Respiratory 18 Rate Blood Pressure Blood Pressure 117/67 [Left] O2 Sat by Pulse 95 Oximetry - General physical appearance no distress, no pain, other (looks well) - Eyes normal occular movement - Respiratory normal expansion, normal respiratory effort - Abdomen soft, tender (very minimal in RLQ only), bowel sounds normal, not distended, not guarding, not rigid, other (MCKAYLA with moderate amount of drainage. ) - Integumentary no rash, no growths, no abnormal pigmentation - Psychiatric oriented to time, oriented to person, oriented to place, speech is normal, memory intact - Labs 03/11/18 05:04 03/11/18 05:04
--- NOTE | 2018-03-12 18:15 | Progress Note ---
Assessment and Plan Assessment: 1) Sepsis: present on admission with fever, leukocytosis, tachycardia; etio: perforated appendicitis with pelvic abscess -CRP 24 -UA neg 2) Perforated appendicitis with pelvic abscess -CT abd 03/08 showed 4.1x3.3 cm right pelvic fluid collection. -S/P CT guided placement of an 8 Fr drain in the RLQ appendiceal abscess - 25 mL pus and bloody discharge removed. Drainage cx 03/09 Gram +GPC and GNB 3) Elevated LFTs-mild ? sepsis Plan: -continue zosyn -repeat CT abd tomorrow AM -Dr Gardner to eval drain/repeat CT -if clinically better by Tuesday will consider PO augmentin 875/125mg BID total 10 days until 03/18 -ID clinic in 2 weeks Caitlin Rodríguez MD Subjective Date of service: 03/12/18 Principal diagnosis: pelvic abscess Interval history: Feels better, no fever for 24h. Micro: Blood cx 03/10 pending Drainage cx 03/09 Gram +GPC and GNB + Enterococcus avium Abx: zosyn 03/09 Objective - Exam Narrative Exam: Alert in NAD, pleasant NC, AT, BENITO, clear OP Neck No LN Lungs CTA mathew CV RRR Abd soft mild TTT in lower abd, +drain with bloody purulent Ext no edema Skin No rash Neuro alert and oriented non focal - Constitutional Vitals: Vital Signs Temp Pulse Resp BP Pulse Ox 98.5 F 58 L 18 123/49 95 03/12/18 16:35 03/12/18 16:35 03/12/18 16:35 03/12/18 16:35 03/12/18 12:06 Temperature -Last 24 Hours Temperature 98.5 F Temperature 98.6 F Temperature 98.4 F Temperature 98.4 F Temperature 99.2 F Temperature 98.3 F Temperature 100.9 F - Labs CBC & Chem 7: 03/11/18 05:04 03/11/18 05:04
[2018-03-13] MEDS: HEPARIN SUB-Q SCH ×3 (05:44→21:22)
[2018-03-13] MEDS: NACL 0.9% 1000 ML 1,000 ML IV SCH (09:53)
[2018-03-13] MEDS: ZOSYN/NS 4.5GM/100ML 4.5 GM/100 ML VIAL IV SCH ×3 (11:18→21:23)
[2018-03-13] MEDS: TYLENOL PO PRN ×2 (12:53→21:29)
--- NOTE | 2018-03-13 16:02 | Progress Note ---
Assessment and Plan Assessment: 1) Sepsis: fever trending down; etio: perforated appendicitis with pelvic abscess -CRP 24 -UA neg 2) Perforated appendicitis with pelvic abscess -CT abd 03/08 showed 4.1x3.3 cm right pelvic fluid collection. -S/P CT guided placement of an 8 Fr drain in the RLQ appendiceal abscess - 25 mL pus and bloody discharge removed. Drainage cx 03/09 Enterococcus avium 3) Elevated LFTs-mild ? sepsis Plan: -continue zosyn -repeat CT abd done today - reading pending -Dr Gardner to eval drain/repeat CT -if clinically better will consider PO augmentin 875/125mg BID total 10 days until 03/18 -ID clinic in 2 weeks Caitlin Rodríguez MD Subjective Date of service: 03/13/18 Principal diagnosis: pelvic abscess Interval history: Feels better, no fever for 48h Micro: Blood cx 03/10 ngtd Drainage cx 03/09 Gram +GPC and GNB + Enterococcus avium Abx: zosyn 03/09 Objective - Exam Narrative Exam: Alert in NAD, pleasant NC, AT, BENITO, clear OP Neck No LN Lungs CTA mathew CV RRR Abd soft mild TTT in lower abd, +drain with bloody purulent 10cc out Ext no edema Skin No rash Neuro alert and oriented non focal - Constitutional Vitals: Vital Signs Temp Pulse Resp BP Pulse Ox 97.8 F 63 20 114/60 96 03/13/18 15:03 03/13/18 15:03 03/13/18 15:03 03/13/18 15:03 03/13/18 15:03 Temperature -Last 24 Hours Temperature 97.8 F Temperature 99.1 F Temperature 98.3 F Temperature 98.0 F Temperature 98.3 F Temperature 98.5 F - Labs CBC & Chem 7: 03/11/18 05:04 03/11/18 05:04
--- NOTE | 2018-03-13 16:22 | Cat Scan Report ---
FINAL REPORT EXAM: CT ABDOMEN PELVIS W CON HISTORY: interval changes of abscess COMPARISON: CT of the abdomen pelvis performed on 03/10/2018 TECHNIQUE: Multiple contiguous axial images were obtained from the lung bases to the pubic symphysis after administration of IV contrast. Reformatted sagittal and coronal images were available for review. FINDINGS: Lung bases: Interval development of small bilateral pleural effusions with associated atelectasis at the bilateral lung bases. Visualized heart and mediastinum: Normal. 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 Spleen: Normal. Pancreas: Normal. Gallbladder and Biliary Tree: No calcified gallstones. No biliary ductal dilatation. Adrenal glands: Normal. Kidneys: 6 millimeter cortical cyst of the right kidney. No hydronephrosis. Symmetric enhancement to the kidneys. Bladder: Normal. Pelvic organs: Normal uterus and ovaries. Bowel: No focal wall thickening. No evidence of obstruction. No evidence of extravasation of oral contrast. Peritoneum: Interval placement of a drain within the right pelvis with significant decrease in size of previously seen pelvic abscess now measuring approximately 1.6 x 1.6 centimeters. No free air. Small amount of free fluid adjacent to the liver and gallbladder. Vasculature: Abdominal aorta is normal in caliber without evidence of aneurysm. Normal appearance of the portal venous system and the inferior vena cava. Bones and soft tissues: No suspicious osseous lesions. No acute fracture or dislocation. There is mild edema of the soft tissues. IMPRESSION: Interval placement of right pelvic drain with subsequent decrease in size of pelvic abscess now measuring approximately 1.6 x 1.6 centimeters. Evidence for fluid overload, including small bilateral pleural effusions, a small amount of ascites, and mild soft tissue edema.
--- NOTE | 2018-03-13 20:05 | Progress Note ---
Assessment and Plan - Patient Problems (1) Acute appendicitis with peritoneal abscess Current Visit: Yes Status: Acute Plan to address problem: 1) Nurses to instruct pt in drain care. 2) DC IVF 3) CBC in the am 4) Discuss possible discharge tomorrow with Dr. Rodríguez of ID. Subjective Date of service: 03/13/18 Patient Reports: Positive: no new complaints, feels better Objective Vital Signs - 12hr 03/13/18 03/13/18 12:53 15:03 Temperature 97.8 F Pulse Rate 63 Respiratory 18 20 Rate Blood Pressure 114/60 [Left] O2 Sat by Pulse 96 Oximetry - Abdomen soft, bowel sounds normal (Minimally TTP in the RLQ) - Labs 03/11/18 05:04 03/11/18 05:04 - Imaging CT scan - abdomen: report reviewed CT scan - pelvis: report reviewed
[2018-03-14] MEDS: HEPARIN SUB-Q SCH ×2 (01:57→10:38)
[2018-03-14] MEDS: ZOSYN/NS 4.5GM/100ML 4.5 GM/100 ML VIAL IV SCH (05:50)
[2018-03-14 06:55] LABS: Hematocrit 28.6 % (30.3-42.9); Hemoglobin 9.8 gm/dl (10.1-14.3); Mean Corpuscular HGB Conc 34 % (30-34); Mean Corpuscular Hemoglobin 30 pg (28-32); Mean Corpuscular Volume 87 fl (79-97); Platelet Count 333 K/mm3 (140-440); Red Blood Count 3.31 M/mm3 (3.65-5.03); Red Cell Distribution Width 14.6 % (13.2-15.2)
[2018-03-14 07:13] LABS: Eosinophils # (Auto) 0.1 K/mm3 (0.0-0.4); Eosinophils % (Auto) 1.2 % (0.0-4.3); Monocytes # (Auto) 0.4 K/mm3 (0.0-0.8); Monocytes % (Auto) 4.7 % (0.0-7.3)
[2018-03-14 08:43] LABS: Anisocytosis 1+; Band Neutrophils # (Manual) 0.7 K/mm3; Platelet Estimate Consistent w Auto; Total Cells Counted 100
[2018-03-14 08:47] VITALS: BP 120/73
--- NOTE | 2018-03-14 12:58 | Discharge Summary ---
Providers - Providers Date of Admission: 03/08/18 18:22 Date of discharge: 03/14/18 Attending physician: SARA HARTMANN 03/09/18 06:00 Consult to Interventional Radiology [CONS] Routine Consulting Provider: KAMERON CHEN Reason For Exam: RLQ abscess Place consult to:: DR. CHEN Notified:: DR. CHEN Comment:: COMPLETED Primary care physician: L[employer]ANSIT OPERATOR Hospitalization Reason for admission: Appendiceal abscess Condition: Fair Pertinent studies: CT abdomen and pelvis Procedures: IR percutaneous drainage of appendiceal abscess Hospital course: Slow improvement after drainage and IV Zosyn. Disposition: DC-01 TO HOME OR SELFCARE - Discharge Diagnoses (1) Acute appendicitis with peritoneal abscess Status: Acute Core Measure Documentation - Palliative Care Palliative Care/ Comfort Measures: Not Applicable - Core Measures Any of the following diagnoses?: none - VTE Discharge Requirements Deep Vein Thrombosis/Pulmonary Embolism Present on Admission: No Contraindication No Overlap Therapy order at DC: Not Indicated Exam - Constitutional Vitals: Temp Pulse Resp BP Pulse Ox 98.1 F 92 H 18 120/73 98 03/14/18 08:16 03/14/18 08:15 03/14/18 08:16 03/14/18 08:16 03/14/18 08:15 General appearance: Present: no acute distress, well-nourished - EENT Eyes: Present: PERRL ENT: hearing intact, clear oral mucosa - Neck Neck: Present: supple, normal ROM - Respiratory Respiratory effort: normal Respiratory: bilateral: CTA - Cardiovascular Heart Sounds: Present: S1 & S2. Absent: rub, click - Extremities Extremities: pulses symmetrical, No edema Peripheral Pulses: within normal limits - Abdominal General gastrointestinal: Present: soft, non-tender, non-distended, normal bowel sounds Female genitourinary: Present: normal - Integumentary Integumentary: Present: clear, warm, dry - Musculoskeletal Musculoskeletal: gait normal, strength equal bilaterally - Psychiatric Psychiatric: appropriate mood/affect, intact judgment & insight - Neurologic Neurologic: CNII-XII intact, moves all extremities Plan Activity: no restrictions Diet: regular Wound: per your surgeon's advice Follow up with: SARA HARTMANN MD [Staff Physician] - 7 Days
== END 2018-03-14 15:20 | disposition home or self-care (01) | DRG 871 ==
LOC: ED 14:47 → 3A 18:22 → 3B-SURG 19:28
PROVIDERS: ADMIT Surgery; ATTEND Surgery
PROC: 0W9G30Z Drainage of Peritoneal Cavity with Drainage Device, Percutaneous Approach (ICD-10-PCS; principal; 2018-03-09)
DX: A41.9 Sepsis, unspecified organism (principal); K35.2 Acute appendicitis with generalized peritonitis
CPT/HCPCS: 10160; 36415; 74177; 77012; 80048; 80053; 81001; 85007; 85025; 86140; 86850; 86900; 86901; 87040; 87076; 87116; 87186; 96361; 96374; C1769; J1644; J2250; J2270; J2405; J2543; J2704; J3010; J7030; J7040; Q9967

== ENCOUNTER 2018-06-27 13:00 | Inpatient (IN) | payer OTHER ==
--- NOTE | 2018-06-27 14:01 | Anesthesia Consultation ---
Anesthesia Consult and Med Hx Date of service: 06/27/18 - Airway Anesthetic Teeth Evaluation: Good ROM Head & Neck: Adequate Mental/Hyoid Distance: Adequate Mallampati Class: Class I Intubation Access Assessment: Good - Pulmonary Exam CTA: Yes - Cardiac Exam Cardiac Exam: RRR - Pre-Operative Health Status ASA Pre-Surgery Classification: ASA2 Proposed Anesthetic Plan: General - Pulmonary Hx Smoking: No Hx Respiratory Symptoms: No SOB: No Hx Sleep Apnea: No - Cardiovascular System Hx Hypertension: No Hx Heart Attack/AMI: No Hx Cardia Arrhythmia: No - Central Nervous System Hx Seizures: No CVA: No Hx Psychiatric Problems: No - Gastrointestinal Hx Gastroesophageal Reflux Disease: No - Endocrine Hx Renal Disease: No Hx Liver Disease: No Hx Insulin Dependent Diabetes: No Hx Thyroid Disease: No - Hematic Hx Anemia: Yes - Additional Comments Anesthesia Medical History Comments: Hx appendiceal abcess s/p IR drainage 2017 now scheduled for open appendectomy. No hx anesthetic complications.
[2018-06-27] MEDS ORDERED: VERSED IV NR (15:00)
[2018-06-27] MEDS ORDERED: LACTATED RINGERS 1,000 ML IV SCH (15:00)
[2018-06-27] MEDS ORDERED: NEURONTIN PO NR (15:00)
[2018-07-03] MEDS ORDERED: VERSED IV NR (06:00)
[2018-07-03] MEDS ORDERED: LACTATED RINGERS 1,000 ML IV SCH (06:00)
[2018-07-03] MEDS ORDERED: HEPARIN SUB-Q NR (07:00)
[2018-07-03] MEDS ORDERED: ANCEF/STERILE WATER 2 GM/20 ML IV NR (07:00)
[2018-07-03] MEDS ORDERED: FLAGYL 500 MG/100 ML 500 MG/100 ML BAG IV NR (07:00)
[2018-07-03] MEDS ORDERED: DECADRON ONE ×2 (07:24→08:19)
[2018-07-03] MEDS ORDERED: ZOFRAN ONE (07:24)
[2018-07-03] MEDS ORDERED: DIPRIVAN 10 MG/ML IV ONE (07:24)
[2018-07-03] MEDS ORDERED: ZEMURON IV ONE (07:25)
[2018-07-03] MEDS ORDERED: XYLOCAINE MPF 2% ONE (07:25)
[2018-07-03] MEDS ORDERED: DILAUDID ONE (07:27)
[2018-07-03] MEDS ORDERED: NACL 0.9% IR ONE (07:28)
--- NOTE | 2018-07-03 07:57 | Anesthesia Day of Surgery ---
Anesthesia Day of Surgery - Day of Surgery Patient Examined: Yes Patient H&P Reviewed: Yes Patient is NPO: Yes
[2018-07-03] MEDS ORDERED: ROBINUL ONE (08:19)
[2018-07-03] MEDS ORDERED: BLOXIVERZ ONE (08:19)
[2018-07-03] MEDS ORDERED: DILAUDID IV PRN (08:30)
[2018-07-03] MEDS ORDERED: TORADOL ONE (09:05)
[2018-07-03] MEDS ORDERED: SUBLIMAZE ONE (09:05)
[2018-07-03] MEDS ORDERED: NACL 0.9% 1000 ML 1,000 ML ONE (09:13)
[2018-07-03] MEDS ORDERED: ZOSYN/NS 4.5GM/100ML 4.5 GM/100 ML VIAL IV ONE (10:00)
--- NOTE | 2018-07-03 10:08 | Post Operative Note ---
Pre-op diagnosis: Appendiceal abscess, h/o Post-op diagnosis: same Procedure: Open appendectomy Anesthesia: GETA Surgeon: SARA HARTMANN Estimated blood loss: minimal Pathology: list (Appendix) Specimen disposition: to lab Condition: stable Disposition: PACU
[2018-07-03] MEDS ORDERED: MORPHINE IV PRN (10:14)
[2018-07-03] MEDS ORDERED: ZOFRAN IV PRN (10:14)
[2018-07-03] MEDS: D5W/0.45% NACL/KCL 20 MEQ 20 MEQ/1,000 ML BAG IV SCH ×2 (11:31→21:13)
[2018-07-03] MEDS: MORPHINE IV PRN ×2 (11:31→16:57)
--- NOTE | 2018-07-03 11:44 | Post Anesthesia Evaluation ---
- Post Anesthesia Evaluation Patient Participated: Yes Airway Patent: Yes Stable Respiratory Function: Yes Nausea/Vomiting: No Temp > 96.8F: Yes Pain Manageable: Yes Adequeate Hydration: Yes Anesthesia Complications: No
[2018-07-03] MEDS: ZOSYN/NS 4.5GM/100ML 4.5 GM/100 ML VIAL IV SCH ×2 (14:42→21:11)
--- NOTE | 2018-07-03 17:03 | Procedure Note ---
Date of procedure: 07/03/18 Pre-op diagnosis: H/o appendiceal abscess Post-op diagnosis: same Procedure: Open appendectomy Description of procedure: Pt was placed supine on the OR table. GETA was administered. An indwelling aaron catheter was inserted. Abdomen was prepped and draped. Peritoneal cavity was accessed via a vertical midline incision below the umbilicus. The appendix was scarred down in the RLQ. The lateral attachments of the cecum and right colon were incised to mobilize the cecum medially. The appendix was carefully dissected off of the right fallopian tube. Mesoappendix was clamped, divided and ligated with 2-0 silk ties. There was some serous-milky drainage from the appendix during the appendiceal dissection. This drainage was collected and was sent for C&S. The base of the appendix was eventually freed up. The base of the appendix was amputated and the base of the appendix identified with a 2-0 silk suture. It was sent for frozen section which failed to reveal any evidence of malignancy. The appendiceal stump was closed with 3 interrupted sutures of 3-0 Vicryl and a 2nd layer of interrupted 3-0 silks. Peritoneal cavity was irrigated with warm saline. Areas of dissection were checked for hemostasis which was excellent. Midline fascia was approximated with a running, looped #1 PDS. SQ tissue was irrigated with warm saline. The skin was approximated over a Koby drain with a running, subcuticular suture of 4-0 Monocryl. A CHANTELLE dressing was then applied. Pt tolerated the procedure well. She was extubated in the OR and was taken to PACU in stable condition. Anesthesia: GETA Surgeon: SARA HARTMANN Estimated blood loss: minimal Pathology: list (Appendix) Specimen disposition: to lab Condition: stable Disposition: PACU
[2018-07-03] MEDS: HEPARIN SUB-Q SCH (21:11)
[2018-07-04] MEDS: ZOSYN/NS 4.5GM/100ML 4.5 GM/100 ML VIAL IV SCH ×2 (05:41→13:23)
[2018-07-04] MEDS: D5W/0.45% NACL/KCL 20 MEQ 20 MEQ/1,000 ML BAG IV SCH (08:37)
[2018-07-04 09:50] LABS: Basophils # (Auto) 0.1 K/mm3 (0.0-0.1); Basophils % (Auto) 0.6 % (0.0-1.8); Hematocrit 31.6 % (30.3-42.9); Hemoglobin 10.8 gm/dl (10.1-14.3); Lymphocytes # (Auto) 1.6 K/mm3 (1.2-5.4); Lymphocytes % (Auto) 16.9 % (13.4-35.0); Mean Corpuscular HGB Conc 34 % (30-34); Mean Corpuscular Hemoglobin 30 pg (28-32); Mean Corpuscular Volume 88 fl (79-97); Monocytes # (Auto) 0.5 K/mm3 (0.0-0.8); Monocytes % (Auto) 5.7 % (0.0-7.3); Platelet Count 213 K/mm3 (140-440); Red Blood Count 3.58 M/mm3 (3.65-5.03); Red Cell Distribution Width 15.2 % (13.2-15.2)
[2018-07-04] MEDS ORDERED: PERCOCET 5/325 PO PRN (09:51)
[2018-07-04 10:05] LABS: BUN/Creatinine Ratio 13; Blood Urea Nitrogen 9 mg/dL (7-17); Calcium 8.4 mg/dL (8.4-10.2); Hemolysis Index 10
[2018-07-04] MEDS: HEPARIN SUB-Q SCH (10:53)
--- NOTE | 2018-07-04 14:21 | Discharge Summary ---
Providers - Providers Date of Admission: 07/03/18 06:10 Date of discharge: 07/04/18 Attending physician: SARA mcgrath Primary care physician: TOMASA CONROY Hospitalization Reason for admission: H/o appendiceal abscess Condition: Good Pertinent studies: none Procedures: Open appendectomy on 07/03/18 Hospital course: Unremarkable Disposition: DC-01 TO HOME OR SELFCARE Core Measure Documentation - Palliative Care Palliative Care/ Comfort Measures: Not Applicable - Core Measures Any of the following diagnoses?: none - VTE Discharge Requirements Deep Vein Thrombosis/Pulmonary Embolism Present on Admission: No Contraindication No Overlap Therapy order at DC: Not Indicated - Acute AL Discharge Requirements Aspirin at discharge: No Reason for no aspirin on DC: Patient refusal RONALDO/ARB for LVSD if EF <40%: Not Applicable Beta gina at discharge: No Reason for no beta gina on DC: Patient refusal Statin for LDL = or >100 mg/dl on DC: Not Applicable Reason for no statin on DC: Patient refusal - Heart Failure Discharge Requirements RONALDO/ARB for LVSD if EF <40%: Not Applicable Reason for no RONALDO/ARB: Patient refusal Reason for no beta gina on DC: Patient refusal - Stroke Discharge Requirements Statin for LDL = or >70 mg/dl on DC: Not Applicable Reason for no statin on DC: Patient Refusal Anticoag for atrial fib/atrial flutter: Not Applicable Reason for no anticoag for AF/F on DC: Patient Refusal Antithrombotic for ischemic stroke: No Reason for no antithrombotic on DC: Patient Refusal Exam - Constitutional Vitals: Temp Pulse Resp BP Pulse Ox 98.0 F 72 20 103/51 95 07/04/18 12:28 07/04/18 12:28 07/04/18 13:21 07/04/18 12:28 07/04/18 12:28 - Respiratory Respiratory effort: normal Respiratory: bilateral: CTA - Cardiovascular Heart Sounds: Present: S1 & S2. Absent: rub, click - Extremities Extremities: pulses symmetrical, No edema - Abdominal General gastrointestinal: Present: soft, non-tender, non-distended, normal bowel sounds Female genitourinary: Present: normal Plan Activity: other (No lifting or straining) Diet: regular Wound: per your surgeon's advice Follow up with: TOMASA CONROY MD [Primary Care Provider] - 7 Days
[2018-07-04 18:22] VITALS: BP 103/41
== END 2018-07-04 16:15 | disposition home or self-care (01) | DRG 340 ==
LOC: 3A 07-03 06:10 → 3B-SURG 07-03 10:45
PROVIDERS: ADMIT Surgery; ATTEND Surgery
PROC: 0DTJ0ZZ Resection of Appendix, Open Approach (ICD-10-PCS; principal; 2018-07-03)
DX: K35.33 Acute appendicitis with perforation, localized peritonitis, and gangrene, with abscess (principal)
CPT/HCPCS: 36415; 80048; 82565; 85025; 87075; 87116; 88304; 88331; 88342; J0690; J1100; J1170; J1644; J1885; J2250; J2270; J2405; J2543; J2704; J2710; J3010; J7030; J7120